=== PATIENT | male | born 1970 | race Caucasian/White ===

== ENCOUNTER 2018-09-22 23:47 | Emergency (ER) | payer OTHER ==
[~2018-09-22] VITALS: Ht 177.8 cm; Wt 108.9 kg
[2018-09-23] MEDS ORDERED: CEPH500 PO (01:28)
== END 2018-09-23 02:30 | disposition home or self-care (01) ==
LOC: ER 23:47
DX: L03.116 Cellulitis of left lower limb (principal); L03.115 Cellulitis of right lower limb; I10 Essential (primary) hypertension; I25.2 Old myocardial infarction
CPT/HCPCS: 99283